=== PATIENT | female | born 1950 | race Caucasian/White ===

== ENCOUNTER 2016-09-12 15:40 | Observation (INO) | payer MEDICARE, OTHER ==
[~2016-09-12] VITALS: Ht 170.2 cm; Wt 107.5 kg
[~2016-09-12 15:40] MED LIST: BENAZEPRIL HCL20 MG PO; CELEXA40 MG PO; CETIRIZINE HCL10 MG PO; MOBIC PO; NEURONTIN100 MG PO; OXYBUTYNIN CHLOR5 MG PO; PROTONIX40 MG PO; TRAMADOL HCL50 MG PO
[2016-09-13] MEDS ORDERED: LOTENSIN40 MG PO (15:42)
[2016-09-13] MEDS ORDERED: MUCINEX100 MG PO (15:42)
[2016-09-13] MEDS ORDERED: VIBRAMYCIN-DPS100 M2 PO (15:42)
[2016-09-13] MEDS ORDERED: PEPCID DPS20 MG PO (15:42)
[2016-09-13] MEDS ORDERED: CELEXA40 MG PO (15:42)
[2016-09-13] MEDS ORDERED: ASA CHILDREN'S81 MG PO (15:42)
[2016-09-13] MEDS ORDERED: BENADRYL-DPS25 MG PO (15:42)
[2016-09-13] MEDS ORDERED: NITROSTAT0.4 MG SL (15:43)
[2016-09-13] MEDS ORDERED: TYLENOL DPS325 MG PO (15:43)
--- NOTE | 2016-09-25 06:29 | HP ---
ADMIT: 09/12/2016 RM/LOC: 419 [facility] MR#: [id number] [address] [address] HARLANLUCYMORATALHAFARA M [address] [place] [address] History and Physical SEX: F AGE: 66 : 1950 DATE OF SERVICE: CHIEF COMPLAINT: Chest pain. HISTORY OF PRESENT ILLNESS: The patient presented to the emergency room today reporting chest pain for the last over 12 hours. She reports she had her first episode of chest pain at 10 p.m. last night and describes it as a sharp stabbing pain in the left side of her chest. She reports that she took a dose of her 's nitroglycerin that she still had at home and the pain improved. She said it then recurred in the morning and again she took nitroglycerin with resolution of the pain, but then when it returned this afternoon, she presented to the emergency room. She reports it as on the left side of her anterior chest, but feels a little bit of dull discomfort in her left scapula as well. She denies any radiation of the pain or any worsening with activity. She did have some mild shortness of breath and nausea with 1 episode, but today in the ER reports that she had no associated symptoms. She has otherwise been feeling well except for a "COPD exacerbation" a couple weeks ago when she took prednisone and doxycycline with improvement of those symptoms. She works out on a regular basis doing light weightlifting activities and low-impact cardio. She denies that she has ever had any chest pain with those activities and states that this chest pain was different than any chest pain she has experienced with previous admissions. She has had multiple admissions for different chest pain, notably with cardiac catheterization in 2007 with normal coronary arteries, and an echocardiogram in October 2014 with a left ventricular ejection fraction of 60% to 65% with normal chamber sizes, no significant valvular disease and grade 2 diastolic dysfunction. She does have chronic changes in her EKG including V3 to V6 ST depression. Upon presentation in the ER, the patient was having chest pain that resolved after 2 doses of nitroglycerin. She had an EKG with the V3 through V6 ST depression per her previous, but no other acute changes. Now upon admission to the floor, the patient reports that she has no discomfort other than a very mild headache she attributes to the nitroglycerin. She states "I will go home tomorrow, this is nothing." PAST MEDICAL HISTORY: Hypertension, major depressive disorder, urge incontinence status post bladder stimulator that has since been removed, chronic low back pain with nerve stimulator in place, seasonal allergies, hiatal hernia, depression, and anxiety. PAST SURGICAL HISTORY: Normal heart catheterizations in 2001 and 2007, tonsillectomy, appendectomy, partial hysterectomy, breast reduction surgery, Achilles tendon surgery, placement and removal of bladder stimulator, low back nerve stimulator placement. MEDICATIONS: 1. 81 mg aspirin daily p.o. 2. Benazepril 20 mg p.o. daily. 3. Prednisone and doxycycline as needed for COPD exacerbation. ADMIT: 09/12/2016 RM/LOC: 419 [facility] MR#: [id number] [place] [id number] FARA STARKS [address] [place] [address] History and Physical SEX: F AGE: 66 : 1950 ALLERGIES: DARVOCET, ORAL MORPHINE, AND TAPE. FAMILY HISTORY: The patient reports that she has little knowledge of her family history though states her mom had breast cancer in that there is no coronary artery disease to her knowledge. SOCIAL HISTORY: The patient is recently . She lives with her son, who is disabled with schizophrenia. She denies ever using tobacco products and does not drink alcohol. REVIEW OF SYSTEMS: GENERAL: No fevers or chills. HEENT: Mild headache and recent URI symptoms, which have since resolved. CARDIAC: Sharp left-sided chest pain with no radiation, resolved with nitroglycerin. PULMONOLOGY: No current cough or shortness of breath. GASTROINTESTINAL: No current nausea or vomiting. GENITOURINARY: Chronic urgency and frequency. The patient reports that she will be incontinent if she does not urinate every 30 minutes. PSYCH: Normal mood and affect on examination. NEURO: No focal neuro deficits. OBJECTIVE: VITAL SIGNS: Upon admission; 153/76, 88, 20, 96% and 98.7. GENERAL: Awake, alert, and oriented, in no acute distress. Sitting in bed, appears comfortable. HEENT: Head is normocephalic and atraumatic. Pupils are equal, round, and reactive to light. Extraocular muscles are intact. Mucous membranes are moist. NECK: Soft and supple with no appreciable JVD. LUNGS: Clear to auscultation bilaterally without wheezes, rhonchi, or rales. HEART: Regular rate and rhythm with no appreciable murmurs. No carotid bruits. CHEST WALL: No reproduction of pain with palpation. ABDOMEN: Soft, nontender, nondistended, obese. EXTREMITIES: Without cyanosis, clubbing, or edema. PSYCH: Normal mood and affect. OBJECTIVE DATA: White blood cell count 11.0, hemoglobin 13.5, and platelets 351. Creatinine 0.7, potassium 4.1, magnesium 2.2. Troponin, CK, and CK-MB negative. EKG completed with V3 to V6 ST depression similar to previous EKGs. Chest x-ray with mild peribronchial cuffing, but no infiltrate, edema, or pleural effusions. ADMIT: 09/12/2016 RM/LOC: 419 [facility] MR#: [id number] [address] [id number] FARA STARKS [address] [place] [address] History and Physical SEX: F AGE: 66 : 1950 ASSESSMENT AND PLAN: 1. Atypical chest pain. 2. Hypertension. PLAN: We will trend cardiac enzymes with draws scheduled in 3 and 6 hours after the initial. She is currently asymptomatic, and pain is not typical for cardiogenic source. Will consider empiric treatment for gastroesophageal reflux disease or other possible causes of chest pain. Suspect mild headache secondary to nitroglycerin and will make analgesics available if needed. Melissa Brady MD Resident / Molly Chang MD / cali JOB #: [id number] CC: Phuc Rausch, Attending Physician Phuc Rausch, Family Physician
--- NOTE | 2016-10-06 21:30 | ER ---
ADMIT: 09/12/2016 RM/LOC: ER [facility] MR#: [id number] [id number] [place], [place] [id number] FARA STARKS [address] [place] [address] Emergency Room Report SEX: F AGE: 66 : 1950 DATE: 09/12/2016 HISTORY OF PRESENT ILLNESS: A 66-year-old female with chest pain in the night. She took one of her 's nitroglycerin, the pain improved, so she slept, only to recur today, it is sporadic, it is sharp in the anterior portion of her chest but dull in the left scapula, it is worsened with activity. She denies any other symptoms associated with it. She has no cardiac history. PHYSICAL EXAMINATION: GENERAL: Reveals a 66-year-old female, in no acute distress. Reading a book in exam room. LUNGS: Clear to auscultation. CARDIOVASCULAR: Regular rate and rhythm. No murmurs, rubs, or gallops. ABDOMEN: Obese, soft, nontender. EXTREMITIES: Without clubbing or cyanosis. LABORATORY AND X-RAY DATA: Chest x-ray was normal. EKG showed no acute findings. Her white count is 11.8, glucose 104. First set of cardiac markers are negative. DIAGNOSIS: The patient is being admitted with a chest pain rule out. Marcus Sanchez MD/ cali JOB #: [id number] CC: Marcus Sanchez MD, Attending Physician
== END 2016-09-13 09:43 | disposition home or self-care (01) ==
LOC: ER 15:40 → 4PCU 16:43
PROVIDERS: ADMIT Family Medicine
DX: R07.89 Other chest pain (principal); I10 Essential (primary) hypertension; F32.9 Major depressive disorder, single episode, unspecified; F41.9 Anxiety disorder, unspecified; J44.9 Chronic obstructive pulmonary disease, unspecified; M54.5 Low back pain; G89.29 Other chronic pain; Z88.5 Allergy status to narcotic agent; Z88.8 Allergy status to other drugs, medicaments and biological substances; Z79.82 Long term (current) use of aspirin; Z79.899 Other long term (current) drug therapy; Z90.49 Acquired absence of other specified parts of digestive tract; Z90.711 Acquired absence of uterus with remaining cervical stump; Z98.890 Other specified postprocedural states